=== PATIENT | female | born 1980 | race African-American/Black ===

== ENCOUNTER 2024-08-06 11:10 | Emergency (ER) | payer OTHER ==
[2024-08-06 11:16] VITALS: RESP 20; TEMP 98.2; BMI 36.0
[2024-08-06 11:53] LABS: ABSOLUTE IMMATURE GRANULOCYTES 0.01 x10^3/uL (0.0-0.031); BASOPHILS # 0.02 x10^3/uL (0.01-0.08); EOSINOPHILS # 0.04 x10^3/uL (0.04-0.36); HEMATOCRIT 37.4 % (34.1-44.9); HEMOGLOBIN 11.8 g/dL (11.2-15.7); MCHC 31.6 g/dl (32.2-35.5); MEAN CELL VOLUME 87.4 fl (79.4-94.8); MEAN PLT VOLUME 9.7 fl (9.4-12.3); MONOCYTE # 0.41 x10^3/uL (0.24-0.86); MONOCYTE % 9.8 % (4.7-12.5); PLATELET COUNT 286 x10^3/uL (182-369); RDW 14.2 % (12.2-17.1)
[2024-08-06 12:29] LABS: POTASSIUM 3.9 mmol/L (3.5-5.1)
[2024-08-06 12:30] LABS: CALCIUM 9.3 mg/dL (8.5-10.1)
[2024-08-06 12:31] LABS: ALBUMIN 3.5 g/dl (3.4-5.0); BLOOD UREA NITROGEN 8.6 mg/dL (7-18)
[2024-08-06 12:34] LABS: CREATININE 0.7 mg/dL (0.55-1.3)
[2024-08-06 12:36] LABS: BILIRUBIN,TOTAL 0.4 mg/dL (0.2-1); TOT PROT 7.4 g/dl (6.4-8.2)
[2024-08-06 13:41] VITALS: BP 128/79; PULSE 68
== END 2024-08-06 13:47 | disposition home or self-care (01) ==
LOC: JER 11:10
DX: R07.2 Precordial pain (principal)
CPT/HCPCS: 36415; 71045-TC-FY; 80053; 84484; 85025; 93005; 93010; 99285-25